=== PATIENT | female | born 1985 | race Caucasian/White ===

== ENCOUNTER 2017-06-28 16:42 | Emergency (ER) | payer MEDICAID, OTHER ==
[~2017-06-28] VITALS: Ht 160 cm; Wt 84.0 kg
[2017-06-28 16:44] VITALS: Ht 160 cm; Wt 84.0 kg
[2017-06-28] MEDS ORDERED: ONDANSETRON (ODT) 4 MG TAB ODT STA (18:06)
--- NOTE | 2017-06-28 18:09 | ERD ---
ER Documentation Chief Complaint Date/Time DATE: 06/28/17 TIME: 18:08 Chief Complaint 09/04 abd pain x 4 days nausea HPI 31-year-old female presents with 4 days of right upper quadrant abdominal pain. She describes as sharp, radiating to the epigastrium left upper quadrant, moderate to severe, not improving. She reports nausea but no vomiting. Denies fevers or chills. She has not taken anything for pain so far. ROS All systems reviewed and are negative except as per history of present illness. Medications Home Meds Active Scripts Ranitidine Hcl* (Zantac*) 150 Mg Tablet, 150 MG PO BID Y for EPIGASTRIC PAIN, # 30 TAB Prov:NAZARIO COOK PA-C 06/28/17 Allergies Allergies: Coded Allergies: No Known Allergy (Unverified , 06/28/17) PMhx/Soc Medical and Surgical Hx: pt denies Medical Hx, pt denies Surgical Hx Hx Alcohol Use: No Hx Substance Use: No Hx Tobacco Use: No Physical Exam Vitals Vital Signs Date Time Temp Pulse Resp B/P Pulse Ox O2 Delivery O2 Flow Rate FiO2 06/28/17 21:00 68 18 140/89 99 Room Air 06/28/17 16:44 98.2 85 18 142/92 99 Physical Exam General: Well-developed, well-nourished. The patient appears in no acute distress. HEENT: Head is normocephalic, atraumatic. No scleral icterus. Neck: Supple. Nontender. Lungs: Clear to auscultation. Normal air movement. Heart: Regular rate and rhythm. S1 and S2 are normal. No murmurs, gallops, or rubs. Abdomen: Soft, positive tenderness in the right upper quadrant, nondistended. Bowel sounds are normoactive. Extremities: No clubbing or cyanosis. Normal pulses. Moving extremities x 4. No weakness. Neurologic: Alert and oriented 3. No focal deficits. Skin: Normal turgor. No rash or lesions. Result Diagram: 06/28/17182906/28/17 1830 Results 24 hrs Laboratory Tests Test 06/28/17 18:30 White Blood Count 11.210^3/ul Red Blood Count 4.3610^6/ul Hemoglobin 13.2g/dl Hematocrit 38.7% Mean Corpuscular Volume 88.8fl Mean Corpuscular Hemoglobin 30.3pg Mean Corpuscular Hemoglobin Concent 34.1g/dl Red Cell Distribution Width 12.0% Platelet Count 99981^3/UL Mean Platelet Volume 9.7fl Neutrophils % 72.5% Lymphocytes % 19.6% Monocytes % 5.8% Eosinophils % 1.0% Basophils % 0.7% Nucleated Red Blood Cells % 0.0/100WBC Neutrophils # 8.110^3/ul Lymphocytes # 2.210^3/ul Monocytes # 0.710^3/ul Eosinophils # 0.110^3/ul Basophils # 0.110^3/ul Nucleated Red Blood Cells # 0.010^3/ul Urine Color YELLOW Urine Clarity SLIGHTLY CLOUDY Urine pH 6.0 Urine Specific [place] 1.013 Urine Ketones TRACEmg/dL Urine Nitrite NEGATIVEmg/dL Urine Bilirubin NEGATIVEmg/dL Urine Urobilinogen NEGATIVEmg/dL Urine Leukocyte Esterase TRACELeu/ul Urine Microscopic RBC 2/HPF Urine Microscopic WBC 3/HPF Urine Squamous Epithelial Cells FEW/HPF Urine Hemoglobin NEGATIVEmg/dL Urine Glucose NEGATIVEmg/dL Urine Total Protein NEGATIVEmg/dl Sodium Level 144mmol/L Potassium Level 4.1mmol/L Chloride Level 103mmol/L Carbon Dioxide Level 25mmol/L Anion Gap 20 Blood Urea Nitrogen 8mg/dl Creatinine 0.67mg/dl Glucose Level 87mg/dl Calcium Level 9.4mg/dl Total Bilirubin 0.5mg/dl Direct Bilirubin 0.00mg/dl Indirect Bilirubin 0.5mg/dl Aspartate Amino Transf (AST/SGOT) 36IU/L Alanine Aminotransferase (ALT/SGPT) 46IU/L Alkaline Phosphatase 79IU/L Total Protein 8.3g/dl Albumin 4.5g/dl Globulin 3.80g/dl Albumin/Globulin Ratio 1.18 Lipase 104U/L Current Medications Medications (Trade) Dose Ordered Sig/Vale Route PRN Reason Start Time Stop Time Status Last Admin Dose Admin Ondansetron HCl (Zofran Odt) 4 mg ONCE STAT ODT 06/28/17 18:06 06/28/17 18:07 DC 06/28/17 18:27 Acetaminophen/ Hydrocodone Bitart ([place] (5/325)) 1 tab ONCE ONCE PO 06/28/17 18:30 06/28/17 18:31 DC 06/28/17 18:28 Procedures/MDM ED course: Patient was given Zofran and [place] for pain. Labs and urine obtained. MDM: 31-year-old female comes in with right upper quadrant abdominal pain that radiates to her epigastrium and left upper quadrant for 3 days. Patient's workup includes labs, ultrasound, urine and CT scan. White blood cell count is normal, there is no elevation of AST or ALT or lipase. Her gallbladder ultrasound does not show evidence of gallstones, she does have hepatic steatosis. There is evidence of possible hydronephrosis, CT scan was ordered to follow-up, rule out kidney stone. Incidental finding of appendicolith was seen however patient does not have any right lower quadrant pain. Additionally the CT and does not show any supportive evidence of appendicitis. Patient was informed of this finding for future symptoms. She was advised to do a low-fat diet, exercise, and follow-up with her primary care doctor regarding this. No evidence of acute hepatobiliary process, all labs unremarkable and she is stable for discharge. Departure Diagnosis: Primary Impression: Hepatic steatosis Additional Impression: Appendicolith Condition: NAZARIO Wilde PA-C Jun 28, 2017 18:09
[2017-06-28] MEDS ORDERED: HYDROCODONE/APAP (5/325) TAB PO ONE (18:30)
[2017-06-28 18:42] LABS: BASOPHIL # 0.1 10^3/ul (0.0-0.1); BASOPHILS % 0.7 % (0.0-2.0); EOSINOPHILS # 0.1 10^3/ul (0.0-0.5); HEMATOCRIT 38.7 % (37.0-47.0); HEMOGLOBIN 13.2 g/dl (12.0-16.0); LYMPHOCYTES # 2.2 10^3/ul (0.8-2.9); LYMPHOCYTES % 19.6 % (15.0-51.0); MEAN CORPUSCULAR HEMOGLOBIN 30.3 pg (29.0-33.0); MEAN CORPUSCULAR HGB CONC 34.1 g/dl (32.0-37.0); MEAN CORPUSCULAR VOLUME 88.8 fl (82.0-101.0); MEAN PLATELET VOLUME 9.7 fl (7.4-10.4); MONOCYTE # 0.7 10^3/ul (0.3-0.9); MONOCYTES % 5.8 % (0.0-11.0); NEUTROPHIL # 8.1 10^3/ul (1.6-7.5); NEUTROPHILS % 72.5 % (39.0-77.0); PLATELET COUNT 308 10^3/UL (140-415); RED BLOOD COUNT 4.36 10^6/ul (4.20-5.40); WHITE BLOOD COUNT 11.2 10^3/ul (4.8-10.8)
[2017-06-28 18:44] LABS: ADD UMIC YES; UR ASCORBIC ACID NEGATIVE (NEGATIVE); UR BILIRUBIN (Dip) NEGATIVE (NEGATIVE); UR BLOOD (Dip) NEGATIVE (NEGATIVE); UR CLARITY SLIGHTLY CLOUDY (CLEAR); UR COLOR YELLOW (YELLOW); UR GLUCOSE (Dip) NEGATIVE (NEGATIVE); UR KETONES (Dip) TRACE mg/dL (NEGATIVE); UR LEUKOCYTE ESTERASE (Dip) TRACE Leu/ul (NEGATIVE); UR NITRITE (Dip) NEGATIVE (NEGATIVE); UR RBC 2 /HPF (0-5); UR SPECIFIC GRAVITY (Dip) 1.013 (1.003-1.030); UR SQUAMOUS EPITHELIAL CELL FEW /HPF (FEW); UR TOTAL PROTEIN (Dip) NEGATIVE (NEGATIVE); UR UROBILINOGEN (Dip) NEGATIVE (NEGATIVE)
[2017-06-28 19:03] LABS: ALBUMIN 4.5 g/dl (3.3-4.9); ALBUMIN/GLOBULIN RATIO 1.18; BILIRUBIN,INDIRECT 0.5 mg/dl (0-1.1); BILIRUBIN,TOTAL 0.5 mg/dl (0.2-1.3); CALCIUM 9.4 mg/dl (8.4-10.2); CREATININE 0.67 mg/dl (0.44-1.00); POTASSIUM 4.1 mmol/L (3.5-5.1); TOTAL PROTEIN 8.3 g/dl (6.1-8.1)
--- NOTE | 2017-06-28 19:19 | RADRPT ---
PROCEDURE: US Abdomen. CLINICAL INDICATION: abdominal pain TECHNIQUE: Multiple real-time images were acquired of the patient's right upper quadrant abdomen a nd retroperitoneum utilizing a high resolution transducer. COMPARISON: None FINDINGS: The liver demonstrates increased echogenicity. The liver is normal in size and no focal solid lesio ns are seen. The liver measures 15.9 cm in length. The portal vein is patent with normal direction o f flow. No intrahepatic biliary dilatation is seen. No gallstones are identified within the gallbladder. There is no pericholecystic fluid or gallbladd er wall thickening. The common bile duct measures 3.3 mm in maximal dimension. The visualized portions of the pancreas are unremarkable. The tail of the pancreas is not seen. No free fluid is identified. The right kidney is normal in size, and demonstrate normal echogenicity and cortical thickness. The right kidney measures 10.8 cm in long dimension. There is mild fullness of the right renal pelvis. There are no kidney stones. The aorta was not imaged. RPTAT: AA IMPRESSION: Diffuse fatty infiltration of the liver. Mild fullness of the right renal pelvis with no definite hydronephrosis. No evidence of gallstones. .Bertram Wills MD, MD Date Time Electronically viewed and signed by .Bertram Wills MD, on 06/28/2017 19:18 .S/
--- NOTE | 2017-06-28 20:12 | RADRPT ---
PROCEDURE: CT abdomen and pelvis without contrast. CLINICAL INDICATION: right flank and ruq pain TECHNIQUE: CT scan of the abdomen and pelvis without contrast was performed on a multi-slice CT [facility]. The patient was scanned without intravenous contrast. 3-D sagittal and coronal reformatted images were obtained from the axial source images. CTDI: 23.94 and DLP: 943.16 One or more of the following post reduction techniques were used: Automated exposure control. Adjustment of the mA and/or kV according to patient's size. Use of iterative reconstruction technique. COMPARISON: None. FINDINGS: Incidental images through the lung bases reveal no evidence of focal basilar consolidation or pleura l effusion. The liver is diffusely low in attenuation consistent with hepatic steatosis. The liver is otherwise unremarkable on this noncontrast study. The spleen, gallbladder, pancreas and adrenal glands are u nremarkable on this noncontrast study. The kidneys are bilaterally symmetrical without evidence of hydronephrosis. There is no evidence of obstructive uropathy. No significant retroperitoneal adenopathy is identified. Atherosclerotic changes are seen in the ab dominal aorta without evidence of aneurysm. The stomach is grossly unremarkable. There is no evidence of small bowel obstruction. Very small ap pendicoliths are present within an otherwise normal appendix. There is no evidence of diverticuliti s.. No free fluid or free intraperitoneal air is identified. Evaluation of the osseous structures reveals no acute change. IMPRESSION: 1. Very small appendicoliths are present within an otherwise normal appendix. There is no evidence of acute appendicitis. 2. Hepatic steatosis. 3. No evidence of obstructive uropathy, bowel obstruction or diverticulitis. RPTAT:AAJJ Physician Sandi Date Time Electronically viewed and signed by Physician Sandi on 06/28/2017 20:11 [place]/
[2017-06-28] MEDS ORDERED: RANI150T9 PO (20:40)
[2017-06-28 21:00] VITALS: BP 140/89; PULSE 68; RESP 18
== END 2017-06-28 21:00 | disposition home or self-care (01) ==
LOC: FTE 16:42
DX: K76.0 Fatty (change of) liver, not elsewhere classified (principal); R11.0 Nausea; K38.9 Disease of appendix, unspecified
CPT/HCPCS: 36415; 74176; 76705; 80053; 81001; 83690; 85025; Z7502; Z7610